=== PATIENT | male | born 1935 | race Caucasian/White ===

== ENCOUNTER 2018-03-26 20:44 | Emergency (ER) | payer MEDICARE, BC ==
[2018-03-26] MEDS ORDERED: Sodium Chloride 0.9% 10 ML Syringe FLUSH PRN (21:04)
--- NOTE | 2018-03-26 21:06 | EDM.PDOC ---
ED HPI GENERAL MEDICAL PROBLEM - General Chief Complaint: Genitourinary Problem Stated Complaint: DOCTOR CALLED TO HAVE HIM COME IN BASED ON LAB WOR Time Seen by Provider: 03/26/18 20:57 Source of Information: Reports: Patient History Limitations: Reports: No Limitations - History of Present Illness INITIAL COMMENTS - FREE TEXT/NARRATIVE: Patient is a 82-year-old male presents ED complaining of increased frequency or urination. Patient has purchased a [id number] supplement for increased frequency of urination that has only made it worse. He states in the evening he has to use a pad since the urine will eat out. This started approximately one week ago. He notes increased frequency of urination with sitting. With these up and about walking he has no issues. He has not seen a doctor since 1978. He went and saw a provider today at [facility] and had blood work obtained. They called him this evening and told him to come to the ED for further evaluation. His creatinine was 4.4, BUN 58, potassium 5.5. He is on no medications. Other than the complaint as listed above he has no other additional complaints. Patient patient has never been diagnosed with anything. He is currently on no prescription medications. No surgical history. He drinks one beer a day. No smoking or recreational drug use. He takes Aleve and aspirin daily. - Related Data Allergies Allergy/AdvReac Type Severity Reaction Status Date / Time No Known Allergies Allergy Verified 03/26/18 20:52 Home Meds: Home Meds Aspirin [Adult Aspirin] 81 mg PO DAILY 03/26/18 [History] Past Medical History - Past Surgical History GI Surgical History: Reports: Appendectomy Social & Family History - Tobacco Use Smoking Status *Q: Former Smoker Used Tobacco, but Quit: Yes Month/Year Tobacco Last Used: 1989 - Caffeine Use Caffeine Use: Reports: Coffee - Recreational Drug Use Recreational Drug Use: No ED ROS GENERAL - Review of Systems Review Of Systems: ROS reveals no pertinent complaints other than HPI. ED EXAM, GENERAL - Physical Exam Exam: See Below Exam Limited By: No Limitations General Appearance: Alert, WD/WN, No Apparent Distress Eye Exam: Bilateral Eye: Normal Inspection Ears: Hearing Grossly Normal, Hearing Loss Nose: Normal Inspection Throat/Mouth: Normal Inspection, Normal Oropharynx, Normal Voice, No Airway Compromise Neck: Normal Inspection, Supple Respiratory/Chest: No Respiratory Distress, Lungs Clear, Normal Breath Sounds, No Accessory Muscle Use, Chest Non-Tender Cardiovascular: Normal Peripheral Pulses, Regular Rate, Rhythm, No Murmur ( obvious) Peripheral Pulses: 2+: Radial (R) GI/Abdominal: Normal Bowel Sounds, Soft, Non-Tender, No Organomegaly, Distended Back Exam: Normal Inspection Extremities: Normal Inspection, Normal Range of Motion, Non-Tender, Normal Capillary Refill, Other (trace edema to the right leg, chronic per patient since accident 20 years ago. ) Neurological: Alert, Oriented, CN II-XII Intact, Normal Cognition, No Motor/ Sensory Deficits Psychiatric: Normal Affect, Normal Mood Skin Exam: Warm, Dry, Intact, Normal Color, No Rash Course - Vital Signs Last Recorded V/S: Last Vital Signs Temp 98.9 F 03/26/18 20:48 Pulse 107 H 03/26/18 20:48 Resp 18 03/26/18 20:48 BP 158/78 H 03/26/18 20:48 Pulse Ox 95 03/26/18 20:48 - Orders/Labs/Meds Orders: Active Orders 24 hr Category Date Time Status Peripheral IV Care [RC] . DIRECTED Care 03/26/18 21:05 Active C-REACTIVE PROTEIN [CHEM] Stat Lab 03/26/18 21:04 Ordered CBC WITH MANUAL DIFF [HEME] Stat Lab 03/26/18 20:57 Ordered COMPREHENSIVE METABOLIC PN,CMP [CHEM] Stat Lab 03/26/18 20:57 Ordered UA W/MICROSCOPIC [URIN] Stat Lab 03/26/18 21:04 Ordered Sodium Chloride 0.9% @ 150 MLS/HR (1000ml Bag) Med 03/26/18 21:15 Ordered Sodium Chloride 0.9% [Normal Saline] 1,000 ml IV ASDIRECTED Sodium Chloride 0.9% [Saline Flush] Med 03/26/18 21:04 Active 10 ml FLUSH ASDIRECTED PRN Peripheral IV Insertion Adult [OM.PC] Routine Oth 03/26/18 21:04 Ordered Medication Orders Sodium Chloride (Normal Saline) 1,000 mls @ 150 mls/hr IV ASDIRECTED HUSSEIN Last Admin: 03/26/18 21:20 Dose: 150 mls/hr Sodium Chloride (Saline Flush) 10 ml FLUSH ASDIRECTED PRN PRN Reason: Keep Vein Open Last Admin: 03/26/18 21:14 Dose: 10 ml Labs: Laboratory Tests 03/26/18 Range/Units 21:15 WBC 9.56 H (4.23-9.07) K/mm3 RBC 3.65 L (4.63-6.08) M/mm3 Hgb 10.5 L (13.7-17.5) gm/L Hct 33.7 L (40.1-51.0) % MCV 92.3 H (79.0-92.2) fl MCH 28.8 (25.7-32.2) pg MCHC 31.2 L (32.2-35.5) g/dl RDW Std Deviation 43.8 (35.1-43.9) fL Plt Count 352 H (163-337) K/mm3 MPV 8.5 L (9.4-12.3) fl Meds: Medications Generic Name Dose Route Start Last Admin Trade Name Freq PRN Reason Stop Dose Admin Sodium Chloride 1,000 mls @ 150 mls/hr 03/26/18 21:15 03/26/18 21:20 Normal Saline IV 150 mls/hr ASDIRECTED HUSSEIN Administration Sodium Chloride 10 ml 03/26/18 21:04 03/26/18 21:14 Saline Flush FLUSH 10 ml ASDIRECTED PRN Administration Keep Vein Open - Re-Assessments/Exams Free Text/Narrative Re-Assessment/Exam: IV established so we can obtain additional blood work. Patient has brought to her attention his creatinine was 4.4, BUN 58, and potassium 5.5. He was seen earlier today and had lab work obtained. They called this evening telling him to come to the ED for further evaluation. Of note patient is on no medications. Has not seen a doctor since 1978. He denies any complaints at this time except for increased frequency of urination. This is all worsen after taking the [id number]-[id number] supplement for increased frequency urination. IV was ordered and labs were obtained. After these have been obtained I was provided lab results from earlier visit. Unfortunately I was not able to cancel in time. Bladder scan 447. Patient does not feel he needs to urinate. [id number] Called [facility] and spoke with Dr. 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 He agrees this is mostly likely chronic with many potential causes. Requests patient be evaluated at his clinic tomorrow. Call [phone] first thing in the morning for appt time. No additional treatments or testing at this time in the E.D. Discussed my conversation with Dr. Mata. Patient has a ride and agrees with plan. Discharge instructions as documented. Departure - Departure Time of Disposition: 21:43 Disposition: Home, Self-Care 01 Condition: Good Clinical Impression: UTI, Urinary tract infectious disease Renal failure Qualifiers: Renal failure chronicity: chronic Chronic kidney disease stage: stage 5, not on chronic dialysis Qualified Code(s): N18.5 - Chronic kidney disease, stage 5 - Discharge Information Instructions: Chronic Kidney Disease, Adult, [id number], Serum Creatinine Test, Urinary Tract Infection, Adult Forms: ED Department Discharge Additional Instructions: Dr. Mata with [facility] will see you in his clinic tomorrow in [place]. Call his office at [phone] first thing in the morning to schedule an appt. Tell them you were evaluated in the Emergency Room last night and diagnosed with renal failure. Let them know the provider spoke with Dr. Mata in relation to the appt. Continue taking abx as prescribed. Please return to the E.D. if you develop any new or worsening symptoms. - My Orders Last 24 Hours: My Active Orders 03/26/18 20:57 CBC WITH MANUAL DIFF [HEME] Stat COMPREHENSIVE METABOLIC PN,CMP [CHEM] Stat 03/26/18 21:04 C-REACTIVE PROTEIN [CHEM] Stat UA W/MICROSCOPIC [URIN] Stat Sodium Chloride 0.9% [Saline Flush] 10 ml FLUSH ASDIRECTED PRN Peripheral IV Insertion Adult [OM.PC] Routine 03/26/18 21:05 Peripheral IV Care [RC] . DIRECTED 03/26/18 21:15 Sodium Chloride 0.9% @ 150 MLS/HR (1000ml Bag) Sodium Chloride 0.9% [Normal Saline] 1,000 ml IV ASDIRECTED - Assessment/Plan Last 24 Hours: My Active Orders 03/26/18 20:57 CBC WITH MANUAL DIFF [HEME] Stat COMPREHENSIVE METABOLIC PN,CMP [CHEM] Stat 03/26/18 21:04 C-REACTIVE PROTEIN [CHEM] Stat UA W/MICROSCOPIC [URIN] Stat Sodium Chloride 0.9% [Saline Flush] 10 ml FLUSH ASDIRECTED PRN Peripheral IV Insertion Adult [OM.PC] Routine 03/26/18 21:05 Peripheral IV Care [RC] . DIRECTED 03/26/18 21:15 Sodium Chloride 0.9% @ 150 MLS/HR (1000ml Bag) Sodium Chloride 0.9% [Normal Saline] 1,000 ml IV ASDIRECTED
[2018-03-26] MEDS ORDERED: Sodium Chloride 0.9% 1,000 ML IV SCH (21:15)
== END 2018-03-26 22:02 | disposition home or self-care (01) ==
LOC: JD.ED 20:44
DX: N39.0 Urinary tract infection, site not specified (principal); N18.5 Chronic kidney disease, stage 5; Z79.82 Long term (current) use of aspirin; Z87.891 Personal history of nicotine dependence
CPT/HCPCS: 36415; 51798; 80053; 85007; 85027; 86140; 96360; 99283; J7040; J7050

== ENCOUNTER 2018-05-08 21:50 | Emergency (ER) | payer MEDICARE, BC ==
--- NOTE | 2018-05-08 22:19 | EDM.PDOC ---
ED HPI GENERAL MEDICAL PROBLEM - General Chief Complaint: Genitourinary Problem Stated Complaint: PLUGGED NEPHROSTOMY TUBE Time Seen by Provider: 05/08/18 22:19 Source of Information: Reports: Patient History Limitations: Reports: No Limitations - History of Present Illness INITIAL COMMENTS - FREE TEXT/NARRATIVE: 82-year-old male presents to the ED with numerous family members. Patient is moderately hard of hearing. He is in failing level of health over the last 6 weeks. Diagnosed with severe bladder cancer with ureter obstruction about 6 weeks ago requiring right-sided nephrostomy tube placement. 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 Over the last 2 weeks he is in failing health in terms of increased fatigue weight loss and loss of appetite. He did have a paracentesis done by Dr. Penny yesterday in the clinic with removal of approximate 4-1/2 L of fluid. Family members of appreciated very little urinary output today from the nephrostomy tube. Home care nurse was present today to change the dressing over the nephrostomy tube. Therefore it is possible that tube has become malpositioned. Patient had quite severe penile pain this morning that improved with the Tylenol tablet. This is referred pain from the bladder/prostate gland. Denies any fever or chills. States his abdomen does feel better since the paracentesis is done yesterday and he doesn't feel quite short of breath. Onset: Today Onset Date: 05/08/18 (Decreased urine appreciated in the nephrostomy tube drainage bag today.) Duration: Hour(s): Location: Reports: Other (Decreased urinary output. Nephrostomy tube right side..) Quality: Reports: Other (Have pain earlier in his penis referred from his prostate gland. He has known bladder cancer diagnosed 6 weeks ago.) Severity: Moderate Improves with: Reports: None Worsens with: Reports: None Context: Reports: Other (Patient had a paracentesis done yesterday with removal of 4-5 L of fluid. I suspect his decreased urinary output as he has significant ascites on examination. Therefore, decreased urinary output is likely due to fluid traveling into the peritoneal cavity from his bloodstream with poor renal perfusion.). Denies: Activity, Exercise, Lifting, Sick Contact, Trauma Associated Symptoms: Reports: Cough, Loss of Appetite, Malaise, Shortness of Breath, Other (A penile pain earlier today). 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 - Related Data Allergies Allergy/AdvReac Type Severity Reaction Status Date / Time No Known Allergies Allergy Verified 05/08/18 22:08 Home Meds: Home Meds Aspirin [Adult Aspirin] 81 mg PO DAILY 03/26/18 [History] Past Medical History HEENT History: Reports: Cataract, Impaired Vision Cardiovascular History: Reports: Afib Respiratory History: Reports: Asthma, COPD Gastrointestinal History: Reports: GERD Genitourinary History: Reports: Other (See Below) Other Genitourinary History: bladder cancer, kidney failure, nephrostomy Musculoskeletal History: Reports: Back Pain, Chronic Oncologic (Cancer) History: Reports: Bladder - Past Surgical History GI Surgical History: Reports: Appendectomy Male Surgical History: Reports: Suprapubic Catheter Placement Social & Family History - Family History Family Medical History: Noncontributory - Tobacco Use Smoking Status *Q: Former Smoker Used Tobacco, but Quit: Yes Month/Year Tobacco Last Used: 28 - Caffeine Use Caffeine Use: Reports: None - Recreational Drug Use Recreational Drug Use: No - Living Situation & Occupation Living situation: Reports: , with Family ED ROS GENERAL - Review of Systems Review Of Systems: See Below Constitutional: Reports: Malaise, Weakness, Fatigue, Weight Loss (Lost 10 pounds after paracentesis yesterday). Denies: Fever, Chills HEENT: Reports: Glasses, Hearing Loss Respiratory: Reports: Shortness of Breath, Cough. Denies: Wheezing, Pleuritic Chest Pain (On minimal exertion) Cardiovascular: Reports: Dyspnea on Exertion ( chronic edema lower extremities with ascites.), Edema (Today), Lightheadedness. Denies: Chest Pain ( Nonproductive cough), Blood Pressure Problem, Claudication, Orthopnea Endocrine: Reports: Fatigue GI/Abdominal: Reports: Abdominal Pain (Diffuse abdominal discomfort due to significant ascites. He states it is improved since paracentesis yesterday.), Diarrhea (Stools tend to be on the low side due to ascites.), Distension (Known ascites.). Denies: Hematochezia, Melena, Nausea, Vomiting : Reports: Other (Passing small quantities of urine per urethra. Bladder scan reveals 150 mils in his bladder at this time did have significant penile pain earlier this morning which is referred from his prostate/bladder) Musculoskeletal: Reports: Back Pain Skin: Reports: Pallor. Denies: Erythema, Wound, Burn(s) Neurological: Reports: Dizziness, Difficulty Walking (Generalized severe weakness), Weakness. Denies: Confusion, Headache, Numbness (Dizziness at times. ), Paresthesia, Pre-Existing Deficit ( worse help to walk), Syncope, Tingling, Tremors, Trouble Speaking Psychiatric: Reports: No Symptoms Hematologic/Lymphatic: Reports: Anemia Immunologic: Reports: No Symptoms (Suspect by clinical exam) ED EXAM, RENAL/ - Physical Exam Exam: See Below Exam Limited By: Physical Impairment General Appearance: Other (Cachectic in appearance with marked ascites. Marked facial weight loss) Eye Exam: Bilateral Eye: Other (Clinically is moderately anemic on exam. Scleral icterus.) Throat/Mouth: Normal Inspection, Normal Oropharynx, Other Head: Atraumatic, Normocephalic (Tongue is mildly dry.) Neck: Normal Inspection, Supple, Non-Tender, Full Range of Motion. No: Lymphadenopathy (L), Lymphadenopathy (R) Respiratory/Chest: No Accessory Muscle Use, Chest Non-Tender ( decreased air entry to both lower lung bangura and posteriorly.), Respiratory Distress, Decreased Breath Sounds (I'll tachypnea on exam). No: Lungs Clear, Normal Breath Sounds Cardiovascular: Regular Rate, Rhythm, No Murmur, No Rub. No: Normal Peripheral Pulses GI/Abdominal: Distended (Acutely distended abdomen due to ascites. He does have some evidence of aerophagia with tympany to percussion upper abdomen. Lower abdomen is firm to palpation and I can palpate the left hemicolon/or mass in the left lower quadrant. Evidence of recent or centesis right lower quadrant.), Other (Abdomen is firm palpation) Back Exam: Other (Has a nephrostomy tube in the right kidney with dressing applied over the nephrostomy tube probably appropriately. He has a icy hot patch on his lower back as well for pain relief.) Extremities: Pedal Edema (4+ pitting edema of his lower extremities bilaterally. ), Other Neurological: Alert ( Edema up past the thighs.), Oriented, CN II-XII Intact, Normal Cognition Psychiatric: Normal Affect Skin Exam: Warm, Dry, No Rash, Pallor Course - Vital Signs Last Recorded V/S: Last Vital Signs Temp 36.8 C 05/08/18 21:59 Pulse 94 05/08/18 21:59 Resp 18 05/08/18 21:59 BP 126/63 05/08/18 21:59 Pulse Ox 98 05/08/18 21:59 - Orders/Labs/Meds Orders: Active Orders 24 hr Category Date Time Status Abdomen 1V Flat [CR] Stat Exams 05/08/18 23:43 Taken Chest 1V Frontal [CR] Stat Exams 05/08/18 22:40 Taken Retroperitoneal Comp [US] Stat Exams 05/08/18 22:35 Taken URINALYSIS W/MICROSCOPIC [UA W/MICROSCOPIC] [URIN] Stat Lab 05/08/18 22:34 Ordered Labs: Laboratory Tests 05/08/18 05/08/18 05/08/18 Range/Units 22:45 22:45 22:45 WBC 13.41 H (4.23-9.07) K/mm3 RBC 2.80 L (4.63-6.08) M/mm3 Hgb 7.4 L (13.7-17.5) gm/L Hct 24.1 L (40.1-51.0) % MCV 86.1 (79.0-92.2) fl MCH 26.4 (25.7-32.2) pg MCHC 30.7 L (32.2-35.5) g/dl RDW Std Deviation 47.3 H (35.1-43.9) fL Plt Count 452 H (163-337) K/mm3 MPV 7.9 L (9.4-12.3) fl Neutrophils % (Manual) 92 H (40-60) % Band Neutrophils % 0 (0-10) % Lymphocytes % (Manual) 6 L (20-40) % Atypical Lymphs % 0 % Monocytes % (Manual) 2 (2-10) % Eosinophils % (Manual) 0 L (0.8-7.0) % Basophils % (Manual) 0 L (0.2-1.2) Platelet Estimate Increased Hypochromasia 1+ slight Poikilocytosis 1+ slight Anisocytosis 1+ slight Ovalocytes Few RBC Morph Comment Not Reportable Sodium 131 L (136-145) mEq/L Potassium 5.2 H (3.5-5.1) mEq/L Chloride 99 (98-107) mEq/L Carbon Dioxide 23 (21-32) mEq/L Anion Gap 14.2 (5-15) BUN 47 H (7-18) mg/dL Creatinine 3.0 H (0.7-1.3) mg/dL Est Cr Clr Drug Dosing 18.66 mL/min Estimated GFR (MDRD) 20 (>60) mL/min BUN/Creatinine Ratio 15.7 (14-18) Glucose 126 H (83-115) mg/dL Calcium 7.6 L (8.5-10.1) mg/dL Magnesium 2.0 (1.8-2.4) mg/dl Total Bilirubin 0.3 (0.2-1.0) mg/dL AST 25 (15-37) U/L ALT 18 (16-63) U/L Alkaline Phosphatase 119 H (46-116) U/L C-Reactive Protein 17.9 H* (<1.0) mg/dL NT-Pro-B Natriuret Pep 2033 H (0-450) pg/mL Total Protein 5.3 L (6.4-8.2) g/dl Albumin 1.5 L (3.4-5.0) g/dl Globulin 3.8 gm/dL Albumin/Globulin Ratio 0.4 L (1-2) Meds: Medications Discontinued Medications Generic Name Dose Route Start Last Admin Trade Name Freq PRN Reason Stop Dose Admin Sodium Chloride 1,000 mls @ 150 mls/hr 05/08/18 22:45 05/08/18 22:50 Normal Saline IV 150 mls/hr ASDIRECTED HUSSEIN Administration - Radiology Interpretation Free Text/Narrative:: 82-year-old male with diagnosis of urinary bladder cancer 6 weeks ago presents to the ED because of decreased urinary output appreciated by family members into his drainage bag right leg. Patient has a nephrostomy tube in his right kidney. He still does pass is mild quantities of urine per urethra as well. No pain earlier this morning improved with the Tylenol. She's had this intermittently since diagnosis of bladder cancer 6 weeks ago. Apparently he has severe ascites with metastatic disease to the abdomen at time of examination. He underwent paracentesis approximate 5 L of fluid yesterday by Dr. Penny at the clinic. He developed decreased urinary output today. Failing level of health over the last 2 weeks with anorexia developing and loss of weight. Increased fatigue and decreased level of activity. Nephrostomy tube appreciated right side with appropriate dressing over it. I did not remove the dressing and is likely due during dressing. Plan ultrasound will be done to assess for hydronephrosis and position of the nephrostomy tube the right side. Also we'll scan the left side to see if it is functioning at all. Bladder scan reveals 149 mils of urine in the bladder. Thus is showing some degree of retention. Patient has cachectic appearance. He has marked ascites on examination. Routine labs to be done. IV will be normal saline at 150 mils per hour to try and help him perfuse his kidneys suspect the ascites has recurred post paracentesis with likely decrease in blood volume. Likely not perfusing kidneys well. Of note the patient is listed as DO NOT RESUSCITATE. Therefore difficult to decide how aggressive to be with management. - Re-Assessments/Exams Free Text/Narrative Re-Assessment/Exam: 05/08/18 23:13 chest x-ray done portably is revealing poor inspiratory effort likely due to ascites. There is mild diffuse vascular congestion. Mild prominence of the right pulmonary artery. No obvious metastatic disease or pleural effusions. Borderline cardiomegaly by portable technique. Hemoglobin is reported to be 7.4. Lab did call with critical value. 05/08/18 23:38 Labs are back. Total white count is elevated at 13.41 with a left shift of 92% neutrophils and no bands reported. Hemoglobin is low at 7.4 with hematocrit of 24.1. Platelet count is elevated at 452,000. Sodium reveals a hyponatremia with sodium of 131. Potassium slightly elevated at 5.2. Chloride is 99 with a bicarbonate of 23. And a gap is 14.2. BUN is 47 with a creatinine of 3.0. Estimated GFR is 20. Glucose 126. Calcium low at 7.6. Magnesium normal at 2.0. Bilirubin is 0.3. AST is 25 ALT is 18 on phosphatase is 119. C-reactive protein is elevated at 17.9. Protein is low at 5.3 with an albumin fraction very low at 1.5. 05/08/18 23:44 technical fellow identifies only 40 mils of urine in his urinary bladder. There is a pocket of about 160 mils of ascites fluid overlying the bladder. Both kidneys show hydronephrosis. communication electronic technician unable to visualize the nephrostomy tube within the right kidney. The KUB in the hopes that I may be identify the tube to be in close proximity. Otherwise CT will have to be done. 05/08/18 23:51 BNP is also elevated at 2032. Discussed labs with the family. Further decisions on management and treatment will be decided once we are clear as to whether the nephrostomy tube is functioning or not. It is of small caliber and is been present for 6 weeks and has a good chance of being clogged up. Family has tried to withdraw urine earlier today without any success. It has not been flushed. 05/09/18 00:27 KUB was not all that helpful. He reveals in the nephrostomy tube close to where should be but unable to visualize the kidney due to the ascites. On rechecking of his drainage bag there is twice as much urine in the bag as there was initially seen him. This I think is because of IV fluid and perfusion of his kidneys. He is in no pain or discomfort at this time. I spoke with the family at length about the fact that he is very close to the end of his life. Mostly because of poor liver function and hypoproteinemia contributing severely to his ascites. I flushed his nephrostomy tube and it flushes easily. Some fluid did come out around the nephrostomy tube site but only a drop or 2. I was unable to withdraw any urine home. He has scheduled appointments with nephrology and urology on Friday next week. Advised the family as long as he continues to make urine and to his drainage that so we can do. Encouraged him to drink fluids such as Gatorade or Powerade. He'll be discharged home in the care of his family i.e. slipping with his daughter and son-in-law. 05/09/18 01:14 [facility] report is now back. They identified bilateral hydronephrosis. Right kidney measures 11.9 x 4.8 cm. Left kidney measures 10.7 x 5.1 cm. Of note the radiologist does not visualize the nephrostomy tube within the right kidney. Clinically however due to dysfunctioning since there is marked increase in urine drainage bag since arrival in the ED. The tube itself certainly may be malfunctioning. He is going to see nephrology on [place] next week. I've advised him to return to medical care over the weekend if further fluid continues to ooze from the nephrostomy tube drainage site on his back. Also to return if there is decreased fluid or urine output. However there was over 150 mils of urine in the drainage bag since arrival in the ED. I therefore did not feel CT was warranted at this time to look for nephrostomy tube placement. Departure - Departure Time of Disposition: 00:29 Disposition: Home, Self-Care 01 Condition: Fair Clinical Impression: Prostate cancer, Malfunction of nephrostomy tube, Ascites, malignant - Discharge Information *PRESCRIPTION DRUG MONITORING PROGRAM REVIEWED*: No *COPY OF PRESCRIPTION DRUG MONITORING REPORT IN PATIENT ANH: No Instructions: Ascites, Percutaneous Nephrostomy Home Guide, Prostate Cancer Referrals: Megha Garcia MD [Primary Care Provider] - Forms: ED Department Discharge Additional Instructions: Evaluation in the emergency room tonight in regards to poor urinary drainage in the drainage bag today. Attempts to irrigate the nephrostomy tube tonight resulted in some fluid coming around the bandage covering the nephrostomy tube site. This suggests poor function or at least partial occlusion of the nephrostomy tube. On ultrasound both kidneys are enlarged or hydronephrotic. However I can visualize the nephrostomy tube in the middle of the right kidney. It flushes easily but does not withdraw any urine. Urinary output did improve while in the ED suggesting the tube is in the right position. I suspect the reason for poor drainage today was due to paracentesis done yesterday and poor oral intake of fluids with resultant increased fluid buildup in the abdomen again. Fluid got stolen from his bloodstream and put into the abdomen and he was not able to perfuse his kidneys well and therefore they did not make much urine today. IV fluids in the ED seem to improve renal output. Labs reveal poor kidney function with a buildup of fluid in the abdomen and lungs. 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 Also the inability to eat adequate quantities of protein is contributing to the problem. Follow-up with doctors in [place] next week as planned. Currently his fluids such as Gatorade or Powerade as they are very close to IV fluids. - My Orders Last 24 Hours: My Active Orders 05/08/18 22:34 URINALYSIS W/MICROSCOPIC [UA W/MICROSCOPIC] [URIN] Stat 05/08/18 22:35 Retroperitoneal Comp [US] Stat 05/08/18 22:40 Chest 1V Frontal [CR] Stat 05/08/18 23:43 Abdomen 1V Flat [CR] Stat - Assessment/Plan Last 24 Hours: My Active Orders 05/08/18 22:34 URINALYSIS W/MICROSCOPIC [UA W/MICROSCOPIC] [URIN] Stat 05/08/18 22:35 Retroperitoneal Comp [US] Stat 05/08/18 22:40 Chest 1V Frontal [CR] Stat 05/08/18 23:43 Abdomen 1V Flat [CR] Stat
[2018-05-08] MEDS ORDERED: Sodium Chloride 0.9% 1,000 ML IV SCH (22:45)
--- NOTE | 2018-05-10 17:03 | US ---
Renal ultrasound: Multiple real-time images of the kidneys were obtained. Comparison: No previous renal imaging. Hydronephrosis noted of both kidneys. Resistivity indices are increased within both kidneys. No nephrostomy tube is identified within either kidney. Small cyst noted within the right kidney measuring 1.4 cm. Bladder is diffusely thick walled and abnormal. Ascites seen throughout the abdomen. Measurements: Right kidney length: 11.9 cm Left kidney length: 10.7 cm Impression: 1. Bilateral hydronephrosis. 2. No nephrostomy tube seen within either kidney raising the possibility of catheter being dislodged. 3. Ascites seen throughout the abdomen. 4. Diffusely abnormal bladder wall. 5. Elevated resistivity indices within both kidneys compatible with medical renal disease. Diagnostic code #3 I agree with preliminary report issued by [facility] ([facility] report finalized on 05/09/18, 2:06 AM Central Time)
--- NOTE | 2018-05-10 17:18 | CR ---
Chest: Portable view of the chest is obtained. Comparison: No prior chest x-ray. Heart has a slight left ventricular configuration. Tortuous thoracic aorta is seen. Minimal atelectasis noted within the left lung base. Lungs otherwise are clear. Bony structures appear within normal limits for the patient's age. Impression: 1. Incidental findings. 2. Nothing acute is seen on portable chest x-ray. Diagnostic code #2
--- NOTE | 2018-05-10 17:25 | CR ---
Abdomen: Supine view of the abdomen was obtained. Nephrostomy tube noted on the right side. No nephrostomy tube is seen within the kidney on ultrasound exam performed earlier on the same date. Bowel gas pattern appears normal. Mild degenerative change noted within the spine. Mild vascular calcification is seen. Impression: 1. Nephrostomy tube on the right side. This was not identified within the right kidney on previous ultrasound. 2. Other incidental findings. Diagnostic code #3
== END 2018-05-09 00:40 | disposition home or self-care (01) ==
LOC: JD.ED 21:50
DX: N99.522 Malfunction of incontinent external stoma of urinary tract (principal); C67.9 Malignant neoplasm of bladder, unspecified; R18.0 Malignant ascites; Z79.82 Long term (current) use of aspirin; Z87.891 Personal history of nicotine dependence
CPT/HCPCS: 36415; 51798; 71045; 74018; 76770; 80053; 83735; 83880; 85007; 85027; 86140; 96360; 96361; 99284; J7040; 99283